=== PATIENT | female | born 1945 | race Two or more races ===

== ENCOUNTER → 2021-08-30 | Outpatient (CLI) | payer MEDICARE, OTHER | END | disposition home or self-care (01) | LOC: MSC 11:35 | PROVIDERS: ATTEND Anesthesiology | DX: M79.7 Fibromyalgia (principal); M25.562 Pain in left knee; M25.561 Pain in right knee; M62.830 Muscle spasm of back; Z85.3 Personal history of malignant neoplasm of breast; Z90.10 Acquired absence of unspecified breast and nipple; Z79.1 Long term (current) use of non-steroidal anti-inflammatories (NSAID); Z79.84 Long term (current) use of oral hypoglycemic drugs ==

== ENCOUNTER 2022-03-07 09:30 | Outpatient (CLI) | payer MEDICARE, OTHER | END 2022-03-07 23:59 | disposition home or self-care (01) | LOC: MSC 09:30 | PROVIDERS: ATTEND Anesthesiology | DX: M54.50 Low back pain, unspecified (principal); M62.830 Muscle spasm of back; M54.2 Cervicalgia; M25.562 Pain in left knee; M25.561 Pain in right knee; M79.7 Fibromyalgia; Z85.3 Personal history of malignant neoplasm of breast; Z98.890 Other specified postprocedural states; Z79.1 Long term (current) use of non-steroidal anti-inflammatories (NSAID) ==